=== PATIENT | male | born 1995 | race Caucasian/White ===

== ENCOUNTER 2017-03-13 20:53 | Emergency (ER) | payer OTHER ==
[~2017-03-13] VITALS: Ht 180.3 cm; Wt 81.8 kg
[2017-03-13 20:56] VITALS: TEMP 98.4
[2017-03-13] MEDS ORDERED: ADVIL200 MG (21:23)
[2017-03-13 23:20] VITALS: BP 103/61; PULSE 80
== END 2017-03-13 22:24 | disposition home or self-care (01) ==
LOC: COL.ER 20:53
DX: S51.811A Laceration without foreign body of right forearm, initial encounter (principal); W25.XXXA Contact with sharp glass, initial encounter